=== PATIENT | male | born 1950 | race Caucasian/White ===

== ENCOUNTER 2023-08-22 10:32 | Outpatient (AMB) | payer MEDICARE, SELFPAY ==
--- NOTE | 2023-08-22 10:39 | MHC.PC.OV ---
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 Transferring care from Dr. Adeel Salazar MD. Medical records have been requested and received. Colonoscopy-12/05/22-Dr. Verduzco-two 6mm proximal rectum and cecal_, four 3mm transverse colon and cecal_, repeat 3-5 years. 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 Required: No Accompanied by: Self / Same As Patient Allergies No Known Allergies Allergy (Verified 08/22/23 11:08) Medication List - Last Reconciled 08/22/23 by Joseph Kyle PA-C apixaban (Eliquis) 5 mg PO BID aspirin 81 mg PO DAILY atorvastatin 80 mg PO DAILY cetirizine (Aller-Blanquita) 10 mg PO DAILY PRN cholecalciferol (vitamin D3) 25 mcg PO DAILY famotidine (Pepcid AC) 10 mg PO DAILY ferrous fumarate 324 mg PO DAILY finasteride 5 mg PO DAILY furosemide 20 mg PO DAILY metoprolol succinate ER 25 mg PO DAILY [id number] mcg (Centrum Silver Men) 1 tab PO DAILY tadalafil 5 mg PO DAILY Tobacco use date assessed: 08/22/23 Fall risk assessment: No Falls in past year Last assessed Fall Risk: 08/22/23 Dental Screening Dental Screen Date: 08/22/23 Did you have a dental visit in the last 12 months?: Yes Did you have a dental problem in the last 6 months where you did not have access to dental care?: No Was dental information given to patient?: Patient has dentist HPI 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 Patient has a significant past medical history of coronary artery disease, paroxysmal AFib, paroxysmal a flutter status post cardiac ablation, mitral valve replacement, hypertension, type 2 diabetes, hyperlipidemia. .. Coronary artery disease: Has had coronary artery bypass . Patient followed by home performance laborer ( Dr. Yazidi) , continues on beta-troy, anti-platelet therapy and high potency statin . .. AFib/a flutter: Has had a cardiac ablation which seems to have helped. Continues on Eliquis for anticoagulation, denies any overt signs of bleeding. Also sees Dr. Kurtz (brim blocker). .. Type 2 diabetes: Today's A1c is 6.8. He is not on any diabetic medication as he has been able to control with diet. He does go to the gym several times a week and is very active. Colonoscopy: Done by Dr. 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 1. Little interest or pleasure in doing things: not at all 2. Feeling down, depressed, or hopeless: not at all 3. Trouble falling or staying asleep, or sleeping too much: not at all 4. Feeling tired or having little energy: not at all 5. Poor appetite or overeating: not at all 6. Feeling bad about yourself - or that you are a failure or have let yourself or your family down: not at all 7. Trouble concentrating on things, such as reading the newspaper or watching television: not at all 8. Moving or speaking so slowly that other people could have noticed. Or the opposite - being so fidgety or restless that you have been moving around a lot more than usual: not at all 9. Thoughts that you would be better off or of hurting yourself in some way: not at all Total score: 0 Depression Screening Interpretation: Negative Depression Screening Done: Yes 27260 - PHQ-9 Billing: Yes Source: Developed by Drs. Evan Wood, Lulú Martínez, Missael Balderrama and colleagues, with an educational randy from [employer]. Thrive Questionnaire Date Thrive assessed: 08/22/23 I am a: Patient What is your living situation today?: I have a steady place to live Within the past 12 months, did the food you bought not last and you didn't have the money to get more?: Never true Within the past 12 months, did you worry whether your food would run out before you got money to buy more?: Never true Do you have trouble paying for medicines?: No Do you have trouble getting transportation to medical appointments?: No Do you have trouble paying your heating and electricity bill?: No Do you have trouble taking care of your child, family member or friend?: No Do you have trouble with day-to-day activities such as bathing, preparing meals, shopping, managing finances, etc.?: No Are you currently unemployed and looking for a job?: No Are you interested in more education?: No Please select the resources that you would like help with: None Currently or been in a relationship where the following occur: no concerns reported THRIVE Score: 0 AUDIT C Alcohol Use Questionnaire (AUDIT-C) 1. How often do you have a drink containing alcohol?: Never 3. How often do you have six or more drinks on one occasion?: Never Total Score: 0 MAKSIM-7 AMB Questionnaire MAKSIM-7 Date MAKSIM - 7 assessed: 08/22/23 Feeling nervous, anxious, or on edge: 0 = Not at all Not being able to stop or control worryin = Not at all Worrying too much about different things: 0 = Not at all Trouble relaxin = Not at all Being so restless that it is hard to sit still: 0 = Not at all Becoming easily annoyed or irritable: 0 = Not at all Feeling afraid as if something awful might happen: 0 = Not at all Total MAKSIM-7 score (0-4 normal; 5-9 mild; 10-14 moderate; 15-21 severe): 0 Source: Developed by Drs. Evan Wood, Lulú Martínez, Missael Balderrama and colleagues, with an educational randy from [employer]. MAKSIM-7 Assessment Billing MAKSIM-7 Assessment Tool: MAKSIM-7 Assessment 02855 Review of Systems Const Denies headache(s) Eyes Denies loss of vision ENT Denies vertigo, Denies dizziness, Denies headache(s) and Denies sore throat Card Denies chest pain, Denies leg edema and Denies lightheadedness Resp Denies cough, Denies hemoptysis and Denies wheezing GI Denies abdominal pain, Denies melena, Denies constipation, Denies diarrhea and Denies vomiting Denies dysuria, Denies urinary frequency and Denies urinary urgency Musc Denies arthralgias, Denies joint swelling, Denies numbness and Denies tingling Neuro Denies Abnormal speech present, Denies behavioral changes, Denies vertigo, Denies dizziness, Denies headache(s), Denies loss of vision, Denies memory loss, Denies numbness and Denies tingling Psych Denies anxiety, Denies behavioral changes, Denies depression, Denies memory loss and Denies panic attacks Kg/Lymph Denies easy bleeding and Denies easy bruising Aller/Immun Denies wheezing Physical exam (Primary Care) Vital Signs: Last Vital Signs Pulse 55 08/22/23 10:50 BP 140/80 H 08/22/23 10:50 Pulse Ox 98 08/22/23 10:50 Oxygen Delivery Method Room Air 08/22/23 10:50 BMI result Body Mass Index 25.7 Tobacco/Smoking Status: Tobacco use Status Tobacco use date assessed 08/22/23 08/22/23 11:01 Patient Tobacco Use Status Former Tobacco user 08/22/23 11:18 e-Cigarette/Vaping Use Never Used 08/22/23 11:18 PHQ-9: PHQ-9 Score PHQ-9: Total score 0 08/22/23 11:48 Depression Screening Interpretation: Negative Thrive Assessment: Date of Thrive Assessment Date Thrive assessed 08/22/23 08/22/23 11:14 Currently or been in a relationship where the following occur: no concerns reported Const General: healthy appearing, no acute distress, alert and awake Nutritional Appearance: well nourished Orientation/consciousness: oriented to person, oriented to place and oriented to time HENMT Ears: TM's normal bilaterally General nose exam: Normal nasal mucous membranes and turbinates present Eyes Conjunctivae: conjunctivae normal Sclerae: sclerae normal Pupils: Equal, round and reactive pupils present Neck Neck: Yes no lymphadenopathy and Yes no JVD Thyroid: Thyroid normal Carotids: no bruits Resp Effort & Inspection: normal respiratory effort and not tachypneic Auscultation: no crackles, no rales, no rhonchi and no wheezes Cardio Rate: regular rate Rhythm: regular rhythm Heart sounds: no murmurs and normal S1 and S2 GI Palpation (GI): Soft to palpation, nontender, no hepatomegaly and no splenomegaly Auscultation: normal bowel sounds Skin General skin exam: no rashes or lesions noted and dry skin Neuro General: oriented to person, oriented to place and oriented to time Cranial nerves: Yes Equal, round and reactive pupils present Speech: No Abnormal speech present Gait exam (Neuro): Normal gait present Motor exam (neuro): no tremor noted Extrem Right upper extremity: full ROM Left upper extremity: full ROM Right lower extremity: full ROM; no edema Left lower extremity: full ROM; no edema Psych Mental Status: mental status grossly normal Speech and movement: Normal speech and movement present Affect: normal affect Attitude: cooperative Thought process: Normal thought process present Results AMB Hemoglobin A1c AMB Hemoglobin A1c 6.8 % Last Edit by CHRISTOPHE Cheng on 08/22/23 11:12 Results Reviewed Results Reviewed: Laboratory Last Values Hgb A1c (Clinic) 6.8 % (4.0-6.0) H 08/22/23 11:02 Assessment and Plan Assessment & Plan (1) CAD (coronary artery disease), [place] coronary artery: Code(s): I25.10 - Atherosclerotic heart disease of [place] coronary artery without angina pectoris Qualifiers: Associated angina: with stable angina [place] vs. transplanted heart: [place] heart Qualified Code(s): I25.118 - Atherosclerotic heart disease of [place] coronary artery with other forms of angina pectoris Plan: Patient is followed by home performance laborer at [facility]. Continues on beta-troy, aspirin, anticoagulation and statin therapy. Goal LDL to remain below optimally 70 (2) Diabetes mellitus screening: Code(s): Z13.1 - Encounter for screening for diabetes mellitus (3) S/P MVR (mitral valve repair): Code(s): Z98.890 - Other specified postprocedural states Plan: Continues without any symptoms of overt congestive heart failure. Does have furosemide in case of lower extremity swelling. Continues follow-up with cardiology at [facility] (4) Afib: Code(s): I48.91 - Unspecified atrial fibrillation Qualifiers: Atrial fibrillation type: paroxysmal Qualified Code(s): I48.0 - Paroxysmal atrial fibrillation Plan: Patient is followed by brim blocker. Continues on metoprolol for rate control and Eliquis for anticoagulation. He denies any recent episodes of heart palpitations (5) BPH (benign prostatic hyperplasia): Code(s): N40.0 - Benign prostatic hyperplasia without lower urinary tract symptoms Qualifiers: Lower urinary tract symptom presence: symptoms absent Qualified Code(s): N40.0 - Benign prostatic hyperplasia without lower urinary tract symptoms Plan: Patient is followed by [facility] (Dr. Zamora). He reports PSAs have been stable. (6) Erectile dysfunction: Code(s): N52.9 - Male erectile dysfunction, unspecified Qualifiers: Erectile dysfunction type: unspecified Qualified Code(s): N52.9 - Male erectile dysfunction, unspecified Plan: Has been having trouble with erectile dysfunction. Does have both Cialis and Viagra to use in change really from his urologist. He is asking me about other supplements [id number] to help with erectile dysfunction and will give them a try. (7) Iron deficiency: Code(s): E61.1 - Iron deficiency Plan: Has a history of iron-deficiency anemia. Does take iron supplementation a few times a week. Does get constipation when he takes iron supplementation. (8) DMII (diabetes mellitus, type 2): Code(s): E11.9 - Type 2 diabetes mellitus without complications Qualifiers: Diabetes mellitus complication status: without complication Diabetes mellitus long term care administrator insulin use: without long term care administrator use Qualified Code(s): E11.9 - Type 2 diabetes mellitus without complications Plan: Patient's A1c today is 6.8. He will like to continue with lifestyle changes. He is interested in perhaps reducing his statin dose as there is a possible side effect of type 2 diabetes. Orders: Orders Comprehensive [place]. Panel Fast Today E11.9 - Type 2 diabetes mellitus without complications Complete Blood Count no Diff Today E61.1 - Iron deficiency Lipid Panel Today I25.118 - Atherosclerotic heart disease of [place] coronary artery with other forms of angina pectoris AMB Hemoglobin A1c Today Z13.1 - Encounter for screening for diabetes mellitus IRON PROFILE Today D50.9 - Iron deficiency anemia, unspecified, E61.1 - Iron deficiency Medications: New furosemide 20 mg PO DAILY 15 days PRN 15 tabs 1RF edema Z98.890 - Other specified postprocedural states Coding Level of Care Code New Pt Level 4 (17775) Diagnoses Coronary artery disease of [place] artery of [place] heart with stable angina pectoris I25.118 Associated angina: with stable angina [place] vs. transplanted heart: [place] heart Diabetes mellitus screening Z13.1 S/P MVR (mitral valve repair) Z98.890 Paroxysmal atrial fibrillation I48.0 Atrial fibrillation type: paroxysmal Benign prostatic hyperplasia without lower urinary tract symptoms N40.0 Lower urinary tract symptom presence: symptoms absent Erectile dysfunction, unspecified erectile dysfunction type N52.9 Erectile dysfunction type: unspecified Iron deficiency E61.1 Type 2 diabetes mellitus without complication, without long-term current use of insulin E11.9 Diabetes mellitus complication status: without complication Diabetes mellitus long term care administrator insulin use: without chcf use Additional Codes MAKSIM-7 Assessment Billing - MAKSIM-7 Assessment Tool: MAKSIM-7 Assessment 24659 ([id number])
[2023-08-22 10:50] VITALS: BP 140/80; PULSE 55; O2SAT 98; BMI 25.7
== END 2023-08-22 11:40 | disposition home or self-care (01) ==
PROVIDERS: PCP Internal Medicine; Visit Provider Physician Assistant
DX: I25.118 Atherosclerotic heart disease of native coronary artery with other forms of angina pectoris (principal); I48.0 Paroxysmal atrial fibrillation; E11.9 Type 2 diabetes mellitus without complications; Z13.1 Encounter for screening for diabetes mellitus; Z98.890 Other specified postprocedural states; N40.0 Benign prostatic hyperplasia without lower urinary tract symptoms; N52.9 Male erectile dysfunction, unspecified; E61.1 Iron deficiency
CPT/HCPCS: 83036; 99204

== ENCOUNTER 2024-02-22 08:49 | Outpatient (AMB) | payer MEDICARE, SELFPAY ==
[2024-02-22 08:51] VITALS: BP 130/74; PULSE 62; O2SAT 98; BMI 24.8
--- NOTE | 2024-02-22 08:51 | A.OFFPC_ITS ---
Vital Signs 3 02/22/24 08:51 Height 6 ft 2 in Weight 193 lb 0.8 oz BMI 24.8 BP 130/74 Blood Pressure Location Lt brachial Position Sitting Pulse 62 Pulse Source Pulse Oximeter Pulse Oximetry (%) 98 Oxygen Delivery Method Room Air Intake Visit Reasons: pe Intake Note: Patient is here today for a physical. Machine Splitter Required: No Allergies No Known Allergies Allergy (Verified 02/22/24 09:06) Medication List - Last Reconciled 02/22/24 by Radha Escobar PA-C albuterol sulfate 90 mcg/actuation 1 inh inhalation QID PRN 30 days apixaban (Eliquis) 5 mg PO BID aspirin 81 mg PO DAILY atorvastatin 80 mg PO DAILY cetirizine (Aller-Blanquita) 10 mg PO DAILY PRN cholecalciferol (vitamin D3) 25 mcg PO DAILY famotidine (Pepcid AC) 10 mg PO DAILY ferrous fumarate 324 mg PO DAILY finasteride 5 mg PO DAILY metoprolol succinate ER 25 mg PO DAILY [id number] mcg (Centrum Silver Men) 1 tab PO DAILY tadalafil 5 mg PO DAILY Tobacco use date assessed: 08/22/23 Fall risk assessment: No Falls in past year Last assessed Fall Risk: 02/22/24 Dental Screening Dental Screen Date: 02/22/24 Did you have a dental visit in the last 12 months?: Yes Did you have a dental problem in the last 6 months where you did not have access to dental care?: No Was dental information given to patient?: Patient has dentist HPI pe 2 HPI0 Details Patient is a 73-year-old male here today as a new patient.? Patient has a significant past medical history of coronary artery disease, paroxysmal AFib, paroxysmal a flutter status post cardiac ablation, mitral valve replacement, hypertension, type 2 diabetes, hyperlipidemia.? In review of the notes, patient was seen for diabetic eye exam 11/2023 no sign of retinopathy. Colonoscopy:? Done by Dr. verduzco in 2022, polyps found needed repeat in 3-5 years. Follows with cardiology through [facility] and is seen yearly for AFib and MV replacement. Follows with [facility] with Dr. Lin. Today the patient has no acute concerns. 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 1. Little interest or pleasure in doing things: not at all 2. Feeling down, depressed, or hopeless: not at all 3. Trouble falling or staying asleep, or sleeping too much: not at all 4. Feeling tired or having little energy: not at all 5. Poor appetite or overeating: not at all 6. Feeling bad about yourself - or that you are a failure or have let yourself or your family down: not at all 7. Trouble concentrating on things, such as reading the newspaper or watching television: not at all 8. Moving or speaking so slowly that other people could have noticed. Or the opposite - being so fidgety or restless that you have been moving around a lot more than usual: not at all 9. Thoughts that you would be better off or of hurting yourself in some way: not at all Total score: 0 Depression Screening Interpretation: Negative Depression Screening Done: Yes 52243 - PHQ-9 Billing: Yes Source: Developed by Drs. Evan Wood, Lulú Martínez, Missael Balderrama and colleagues, with an educational randy from [employer]. Thrive Questionnaire Date Thrive assessed: 08/22/23 I am a: Patient What is your living situation today?: I have a steady place to live Within the past 12 months, did the food you bought not last and you didn't have the money to get more?: Never true Within the past 12 months, did you worry whether your food would run out before you got money to buy more?: Never true Do you have trouble paying for medicines?: No Do you have trouble getting transportation to medical appointments?: No Do you have trouble paying your heating and electricity bill?: No Do you have trouble taking care of your child, family member or friend?: No Do you have trouble with day-to-day activities such as bathing, preparing meals, shopping, managing finances, etc.?: No Are you currently unemployed and looking for a job?: No Are you interested in more education?: No Please select the resources that you would like help with: None Currently or been in a relationship where the following occur: No concerns reported THRIVE Score: 0 AUDIT C Alcohol Use Questionnaire (AUDIT-C) 1. How often do you have a drink containing alcohol?: Never 3. How often do you have six or more drinks on one occasion?: Never Total Score: 0 MAKSIM-7 AMB Questionnaire MAKSIM-7 Date MAKSIM - 7 assessed: 02/22/24 Feeling nervous, anxious, or on edge: 0 = Not at all Not being able to stop or control worryin = Not at all Worrying too much about different things: 0 = Not at all Trouble relaxin = Not at all Being so restless that it is hard to sit still: 0 = Not at all Becoming easily annoyed or irritable: 0 = Not at all Feeling afraid as if something awful might happen: 0 = Not at all Total MAKSIM-7 score (0-4 normal; 5-9 mild; 10-14 moderate; 15-21 severe): 0 Source: Developed by Drs. Evan Wood, Lulú Martínez, Missael Balderrama and colleagues, with an educational randy from [employer]. MAKSIM-7 Assessment Billing MAKSIM-7 Assessment Tool: MAKSIM-7 Assessment 76830 Review of Systems Const Denies body aches, Denies fatigue, Denies fever(s), Denies frequent falls, Reports headache(s) (Occasionally) and Denies weakness Eyes Details: Patient will occasionally have 15 minute episodes seeing lights in the peripheral vision has discussed this with Ophthalmology. Denies change in vision ENT Denies dysphagia, Denies dizziness, Denies facial pain, Reports headache(s) (Occasionally), Denies nasal congestion and Denies odynophagia Card Denies chest pain, Denies syncope, Denies irregular heart rhythm, Denies leg edema, Denies lightheadedness and Denies dyspnea Resp Denies cough and Denies dyspnea GI Denies constipation, Denies dysphagia, Denies dyspepsia, Denies diarrhea, Denies nausea, Denies odynophagia and Denies vomiting Denies dysuria, Denies urinary frequency, Denies urinary hesitancy and Denies urinary urgency Musc Denies back pain and Denies myalgias Skin/Breast Reports system reviewed and no additional complaints, except as documented Neuro Denies dizziness, Denies syncope, Denies frequent falls, Reports headache(s) (Occasionally) and Denies weakness Psych Reports no additional complaints Endo Denies fatigue Physical exam (Primary Care) Vital Signs: Oxygen Delivery Method Room Air 02/22/24 08:51 Tobacco/Smoking Status: Tobacco use Status Tobacco use date assessed 08/22/23 08/22/23 11:01 Patient Tobacco Use Status Former Tobacco user 08/22/23 11:18 e-Cigarette/Vaping Use Never Used 08/22/23 11:18 Depression Screening Interpretation: Negative Thrive Assessment: Date of Thrive Assessment Date Thrive assessed 08/22/23 08/22/23 11:14 Currently or been in a relationship where the following occur: No concerns reported Const General: cooperative, healthy appearing, comfortable and no acute distress Orientation/consciousness: patient oriented x3 HENMT Head: Yes normocephalic Ears: hearing grossly normal bilaterally, external ears normal, TM's normal bilaterally and EAC's normal General nose exam: Normal external nose present Face and sinus: Yes normal facial exam and Yes sinuses nontender Mouth: Normal oral and palatal mucosa present and tongue normal Throat: Yes posterior oropharynx normal Eyes General: appearance normal, both eyes and all related structures Conjunctivae: conjunctivae normal Pupils: Equal, round and reactive pupils present EOM: EOMs intact bilaterally and No Nystagmus present Neck Neck: Yes normal visual inspection, Yes full ROM and Yes no lymphadenopathy Chest Chest palpation & inspection: normal inspection of the chest Resp Effort & Inspection: normal respiratory effort Auscultation: clear to auscultation bilaterally, no crackles, no rales, no rhonchi, no wheezes and breath sounds present Cardio Rate: regular rate Rhythm: regular rhythm Peripheral pulses: radial pulses present and dorsalis pedis present GI Inspection: Yes normal to inspection and No Abdominal wall edema Palpation (GI): Soft to palpation, not firm and nontender Auscultation: normal bowel sounds Rectal Exam - Male: Yes deferred General: Yes no CVA tenderness Back/Spine/Pelvis Back: no CVA tenderness Skin Other: Small dark brown nevus on the chest without discoloration, crusting, or bleeding and with regular borders. Full body images: 2 1. mole Neuro General: patient oriented x3 Cranial nerves: Yes Equal, round and reactive pupils present, Yes Midline tongue present, Yes Ability to bilaterally elevate shoulders present and No Nystagmus present Gait exam (Neuro): Normal gait present Extrem General: Yes normal to inspection, Yes full ROM, No no pedal edema and No edema Psych Speech and movement: Normal speech and movement present Affect: normal affect Insight: Good insight present (Psych) Judgement: Good judgement present (Psych) Results AMB Hemoglobin A1c 2 AMB Hemoglobin A1c 6.5 % Last Edit by MARIBELL Nunez on 02/22/24 09:06 Assessment and Plan Assessment & Plan (1) DMII (diabetes mellitus, type 2): Code(s): E11.9 - Type 2 diabetes mellitus without complications Qualifiers: Diabetes mellitus complication status: without complication Diabetes mellitus fci insulin use: without rodent exterminator use Qualified Code(s): E11.9 - Type 2 diabetes mellitus without complications Plan: Diabetes is well controlled with lifestyle modification and is not currently on any medication. A1c in the office was 6.5% today down from 6.9% at last visit. We will order for repeat A1c in 6 months. Decrease the amount of carbohydrates such as pasta, bread, rice, and potatoes and limit the amount of sweets. Although fruits are generally healthy they should be eaten in moderation as they are still high in sugar. Hemoglobin A1c goal of less than 7%. Continue on current medication. (2) BPH (benign prostatic hyperplasia): Code(s): N40.0 - Benign prostatic hyperplasia without lower urinary tract symptoms Qualifiers: Lower urinary tract symptom presence: symptoms absent Qualified Code(s): N40.0 - Benign prostatic hyperplasia without lower urinary tract symptoms Plan: Followed by [facility]. On finasteride. (3) Afib: Code(s): I48.91 - Unspecified atrial fibrillation Qualifiers: Atrial fibrillation type: paroxysmal Qualified Code(s): I48.0 - Paroxysmal atrial fibrillation Plan: Follows with [facility]iology s/p mitral valve replacement and atrial fibrillation. Continue on apixaban and metoprolol. (4) CAD (coronary artery disease), [place] coronary artery: Code(s): I25.10 - Atherosclerotic heart disease of [place] coronary artery without angina pectoris Qualifiers: Associated angina: with stable angina [place] vs. transplanted heart: n ative heart Qualified Code(s): I25.118 - Atherosclerotic heart disease of [place] coronary artery with other forms of angina pectoris Plan: Encouraged healthy diet and exercise. (5) Annual physical exam: Code(s): Z00.00 - Encounter for general adult medical examination without abnormal findings Plan: Patient is up-to-date on colonoscopy. Discussed aortic aneurysm screening patient is unsure if he has already had this done and we will reach out to have it scheduled if appropriate. Patient is up-to-date on all other screenings and recommendations for his age. Follow up in 1 year or sooner if new problems arise. (6) Hypercholesterolemia: Code(s): E78.00 - Pure hypercholesterolemia, unspecified Plan: Last cholesterol levels were at goal continue on atorvastatin 80 mg. Avoid foods that are high in cholesterol such as red meat, fried foods, eggs and baked goods. Triglyceride goal of less than 150 and LDL goal of less than 100. Plan This note was constructed using voice recognition software. While every effort has been made to ensure accuracy and project development director, still areas may have been included sometimes these areas may affect the content or meeting of the given symptoms. Total time spent caring for the patient today was 35 minutes. This includes time spent before the visit reviewing the chart, time spent during the visit, and time spent after the visit and documentation. Orders: Orders 2 AMB Hemoglobin A1c Today E11.9 - Type 2 diabetes mellitus without complications Comprehensive Met. Panel Today Z00.00 - Encounter for general adult medical examination without abnormal findings Prostate Specific Antigen Scr Today Z00.00 - Encounter for general adult medical examination without abnormal findings Free T4 (Free Thyroxine) Today Z00.00 - Encounter for general adult medical examination without abnormal findings TSH reflex Free T4 Today Z00.00 - Encounter for general adult medical examination without abnormal findings Vitamin D 25-OH (D2 and D3) Today Z00.00 - Encounter for general adult medical examination without abnormal findings Hemoglobin A1c 6 Months E11.9 - Type 2 diabetes mellitus without complications Vitamin B12 and Folate Today Z00.00 - Encounter for general adult medical examination without abnormal findings Coding Level of Care Code New Pt Prev Care >65yr (18061) Diagnoses Type 2 diabetes mellitus without complication, without long-term current use of insulin E11.9 Diabetes mellitus complication status: without complication Diabetes mellitus rodent exterminator insulin use: without fci use Benign prostatic hyperplasia without lower urinary tract symptoms N40.0 Lower urinary tract symptom presence: symptoms absent Paroxysmal atrial fibrillation I48.0 Atrial fibrillation type: paroxysmal Coronary artery disease of [place] artery of [place] heart with stable angina pectoris I25.118 Associated angina: with stable angina [place] vs. transplanted heart: [place] heart Annual physical exam Z00.00 Hypercholesterolemia E78.00 Additional Codes MAKSIM-7 Assessment Billing - MAKSIM-7 Assessment Tool: MAKSIM-7 Assessment 43668 ([id number])
== END 2024-02-22 09:32 | disposition home or self-care (01) ==
PROVIDERS: PCP Physician Assistant
DX: E11.9 Type 2 diabetes mellitus without complications (principal)
CPT/HCPCS: 83036; 99397

== ENCOUNTER 2024-02-22 09:41 | Outpatient (REF) | payer MEDICARE, SELFPAY ==
[2024-02-22 11:07] LABS: Alanine Aminotransferase 27 U/L (0-40); Albumin Level 4.5 g/dL (3.5-5.0); Alkaline Phosphatase 110 U/L (39-117); Anion Gap 11 (12-20); Aspartate Amino Transferase 44 U/L (5-37); Bilirubin Total 1.2 mg/dL (0.0-1.0); Blood Urea Nitrogen 17 mg/dL (9-16); Calcium 10.1 mg/dL (8.4-10.2); Carbon Dioxide 29 mmol/L (22-29); Chloride 105 mmol/L (96-108); Estimated Glomerular Filt Rate > 60; Glucose Random 115 mg/dL (60-115); Potassium 4.1 mmol/L (3.3-5.1); Sodium 141 mmol/L (135-145); Total Protein 7.5 g/dL (6.5-8.0)
[2024-02-22 11:33] LABS: Free T4 (Free Thyroxine) 0.96 ng/dL (0.71-1.85); TSH reflex Free T4 2.72 uIU/mL (0.32-4.0)
[2024-02-22 11:34] LABS: Folate 13.7 ng/mL (> or = 4.0); Prostate Specific Antigen Scr 1.31 ng/mL (<0.05-4.0); Vitamin B12 599 pg/mL (200-900)
[2024-02-27 13:43] LABS: Vitamin D 25-OH, D2 <4 ng/mL; Vitamin D 25-OH, D3 37 ng/mL; Vitamin D 25-OH, Total 37 ng/mL (30-100)
== END 2024-02-22 09:42 | disposition home or self-care (01) ==
LOC: HO.LAB 09:41
PROVIDERS: PCP Physician Assistant
DX: Z00.00 Encounter for general adult medical examination without abnormal findings (principal); Z12.5 Encounter for screening for malignant neoplasm of prostate
CPT/HCPCS: 36415; 80053; 82306; 82607; 82746; 84153; 84439; 84443

== ENCOUNTER 2025-03-04 09:33 | Outpatient (AMB) | payer MEDICARE, SELFPAY ==
--- NOTE | 2025-03-04 09:49 | A.OFFPC_ITS ---
Vital Signs 03/04/25 09:50 Height 6 ft 2 in Weight 195 lb 4 oz BMI 25.1 BP 110/70 Blood Pressure Location Lt brachial Position Sitting Pulse 62 Pulse Source Pulse Oximeter Temp 96.9 F Temp Source Temporal Artery Scan Pulse Oximetry (%) 100 Oxygen Delivery Method Room Air Intake Visit Reasons: PE R/S from 02/24 - see comments Intake Note: Patient is here today for a physical. 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 Required: No Trapeze Performer: Not Required per policy Accompanied by: Self / Same As Patient Allergies No Known Allergies Allergy (Verified 03/04/25 10:14) Medication List - Last Reconciled 03/04/25 by Joseph Kyle PA-C albuterol sulfate 90 mcg/actuation 1 inh inhalation QID PRN 30 days apixaban (Eliquis) 5 mg PO BID aspirin 81 mg PO DAILY atorvastatin 80 mg PO DAILY cetirizine (Aller-Blanquita) 10 mg PO DAILY PRN cholecalciferol (vitamin D3) 25 mcg PO DAILY famotidine (Pepcid AC) 10 mg PO DAILY ferrous fumarate 324 mg PO DAILY finasteride 5 mg PO DAILY metoprolol succinate ER 25 mg PO DAILY [id number] mcg (Centrum Silver Men) 1 tab PO DAILY tadalafil 5 mg PO DAILY Tobacco use date assessed: 03/04/25 Fall risk assessment: No Falls in past year Last assessed Fall Risk: 03/04/25 Dental Screening Dental Screen Date: 03/04/25 Did you have a dental visit in the last 12 months?: Yes Did you have a dental problem in the last 6 months where you did not have access to dental care?: No Was dental information given to patient?: Patient has dentist HPI PE R/S from 02/24 - see comments HPI Details Patient is a 74-year-old male here today for an annual physical Patient has a significant past medical history of coronary artery disease, paroxysmal AFib, paroxysmal a flutter status post cardiac ablation, mitral valve replacement, hypertension, type 2 diabetes, hyperlipidemia. Concerns--> The patient experiences erectile dysfunction, which he attributes to medications such as metoprolol and finasteride. He is currently using tadalafil, which improves urinary flow but not erectile function for any meaningful period of time. .. Coronary artery disease: Has had coronary artery bypass . Patient followed by lathe set up operator ( Dr. Santos) , continues on beta-troy, anti-platelet therapy and high potency statin . .. AFib/a flutter: Has had a cardiac ablation which seems to have helped. Continues on Eliquis for anticoagulation, denies any overt signs of bleeding. 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 .. Type 2 diabetes: Today's A1c is much improved at 5.6. He is not on any diabetic medication as he has been able to control with diet. He does go to the gym several times a week and is very active. .. Vaccine: Up-to-date with all vaccines, considering RSV vaccine Colonoscopy: Done by Dr. verduzco in 2022, polyps found needed repeat in 3-5 years Laboratory Tests 02/22/24 03/04/25 08:44 09:49 Hgb A1c (Clinic) 6.5 H 5.6 PFSH Medical History Polymyalgia rheumatica Allergic rhinitis Pure hypercholesterolemia Essential hypertension Surgical History Hx of inguinal hernia surgery History of mitral valve replacement Family History Mother Colon cancer, Onset Age: 80 Father DMII (diabetes mellitus, type 2) Brother DMII (diabetes mellitus, type 2) Social History Housing: House Alcohol intake: never Patient Tobacco Use Status: Former Tobacco user e-Cigarette/Vaping Use: Never Used Second Hand Smoke Exposure: Yes service: No 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 1. Little interest or pleasure in doing things: not at all 2. Feeling down, depressed, or hopeless: not at all 3. Trouble falling or staying asleep, or sleeping too much: not at all 4. Feeling tired or having little energy: not at all 5. Poor appetite or overeating: not at all 6. Feeling bad about yourself - or that you are a failure or have let yourself or your family down: not at all 7. Trouble concentrating on things, such as reading the newspaper or watching television: not at all 8. Moving or speaking so slowly that other people could have noticed. Or the opposite - being so fidgety or restless that you have been moving around a lot more than usual: not at all 9. Thoughts that you would be better off or of hurting yourself in some way: not at all Total score: 0 Depression Screening Interpretation: Negative Depression Screening Done: Yes 48172 - PHQ-9 Billing: Yes Source: Developed by Drs. Evan Wood, Lulú Martínez, Missael Balderrama and colleagues, with an educational randy from [employer]. Thrive Questionnaire Date Thrive assessed: 02/25/25 I am a: Patient What is your living situation today?: I have a steady place to live Within the past 12 months, did the food you bought not last and you didn't have the money to get more?: Never true Within the past 12 months, did you worry whether your food would run out before you got money to buy more?: Never true Do you have trouble paying for medicines?: No Do you have trouble getting transportation to medical appointments?: No Do you have trouble paying your heating and electricity bill?: No Do you have trouble taking care of your child, family member or friend?: No Do you have trouble with day-to-day activities such as bathing, preparing meals, shopping, managing finances, etc.?: No Are you currently unemployed and looking for a job?: No Are you interested in more education?: No Please select the resources that you would like help with: None Currently or been in a relationship where the following occur: No concerns reported THRIVE Score: 0 AUDIT C Alcohol Use Questionnaire (AUDIT-C) 1. How often do you have a drink containing alcohol?: Never 2. How many drinks containing alcohol do you have on a typical day when you are drinking?: 1 or 2 3. How often do you have six or more drinks on one occasion?: Never Total Score: 0 MAKSIM-7 AMB Questionnaire MAKSIM-7 Date MAKSIM - 7 assessed: 03/04/25 Feeling nervous, anxious, or on edge: 0 = Not at all Not being able to stop or control worryin = Not at all Worrying too much about different things: 0 = Not at all Trouble relaxin = Not at all Being so restless that it is hard to sit still: 0 = Not at all Becoming easily annoyed or irritable: 0 = Not at all Feeling afraid as if something awful might happen: 0 = Not at all Total MAKSIM-7 score (0-4 normal; 5-9 mild; 10-14 moderate; 15-21 severe): 0 Source: Developed by Drs. Evan oWod, Lulú Martínez, Missael Balderrama and colleagues, with an educational randy from [employer]. MAKSIM-7 Assessment Billing MAKSIM-7 Assessment Tool: MAKSIM-7 Assessment 96135 Review of Systems Const Denies body aches, Denies chills, Denies excessive sweating, Denies fatigue, Denies fever(s) and Denies headache(s) Eyes Denies blurry vision ENT Denies dysphagia, Denies vertigo, Denies dizziness, Denies headache(s), Denies hearing loss and Denies tinnitus Card Denies chest pain, Denies chest pain with activity, Denies syncope, Denies irregular heart rhythm and Denies dyspnea Resp Denies chest congestion, Denies cough, Denies hemoptysis, Denies dyspnea and Denies wheezing GI Denies abdominal pain, Denies melena, Denies hematochezia, Denies coffee ground emesis, Denies dysphagia, Denies diarrhea, Denies nausea and Denies vomiting Denies difficulty urinating, Denies dysuria, Denies urinary frequency, Denies urinary hesitancy and Denies urinary urgency Musc Denies arthralgias, Denies limited range of motion, Denies muscle cramps and Denies muscle weakness Skin/Breast Denies rash and Denies skin ulcer Neuro Denies Abnormal speech present, Denies confusion, Denies vertigo, Denies dizziness, Denies syncope, Denies headache(s), Denies memory loss and Denies seizure-like activity Psych Denies anxiety, Denies confusion, Denies depression, Denies memory loss, Denies panic attacks and Denies paranoia Endo Denies excessive sweating, Denies fatigue, Denies flushing, Denies polydipsia and Denies polyuria Aller/Immun Denies wheezing Physical exam (Primary Care) Vital Signs: Last Vital Signs Temp 96.9 F 03/04/25 09:50 Pulse 62 03/04/25 09:50 BP 110/70 03/04/25 09:50 Pulse Ox 100 03/04/25 09:50 Oxygen Delivery Method Room Air 03/04/25 09:50 BMI result Body Mass Index 25.1 Tobacco/Smoking Status: Tobacco use Status Tobacco use date assessed 03/04/25 03/04/25 10:00 Patient Tobacco Use Status Former Tobacco user 03/04/25 10:00 e-Cigarette/Vaping Use Never Used 03/04/25 10:00 PHQ-9: PHQ-9 Score PHQ-9: Total score 0 03/04/25 10:12 Depression Screening Interpretation: Negative Thrive Assessment: Date of Thrive Assessment Date Thrive assessed 02/25/25 03/04/25 10:00 Currently or been in a relationship where the following occur: No concerns reported Const General: cooperative, comfortable, no acute distress, alert and awake; No confusion Orientation/consciousness: oriented to person, oriented to place, patient or iented x3 and No confusion HENMT Head: Yes normocephalic Ears: external ears normal and TM's normal bilaterally Face and sinus: No sinus tenderness Mouth: Normal oral and palatal mucosa present and tongue normal Teeth and gingiva: dentition normal and gingiva normal Throat: Yes posterior oropharynx normal, Yes tonsils normal and Yes uvula midline Eyes Conjunctivae: conjunctivae normal Sclerae: sclerae normal Pupils: Equal, round and reactive pupils present EOM: EOMs intact bilaterally Direct Ophthalmoscopy: No no photophobia Neck Neck: Yes no lymphadenopathy, No tender and Yes no JVD Thyroid: Thyroid normal Carotids: no bruits Chest Chest palpation & inspection: no tenderness Resp Effort & Inspection: normal respiratory effort, no audible wheezes, not labored and no stridor Auscultation: no crackles, no rales, no rhonchi and no wheezes Cardio Jugular venous distension: no JVD Rate: regular rate, not bradycardic and not tachycardic Rhythm: regular rhythm Bruits: no carotid bruits Peripheral pulses: Peripheral pulses 2+ throughout GI Inspection: Yes normal to inspection, No abdominal wall ecchymosis and No visible herniation Palpation (GI): Soft to palpation, nontender, no guarding, not rigid and No hepatosplenomegaly present Auscultation: normoactive bowel sounds General: Yes no CVA tenderness Back/Spine/Pelvis Back: no CVA tenderness and No back tenderness Cervical Spine: cervical ROM normal Thoracic/Lumbar Spine: thoracic and lumbar spine normal to inspection, straight leg raise negative bilaterally, No thoraco-lumbar ROM limited and No lumbar spinal tenderness Skin Lesions: no lesions Rashes: no rashes Wounds: no wounds Neuro General: oriented to person, oriented to place, patient oriented x3, CN's II-XI intact bilaterally and No confusion Cranial nerves: Yes Equal, round and reactive pupils present and Yes Normal accommodation reflex present Cognition (Neuro): normal cognition Speech: No Abnormal speech present Gait exam (Neuro): Normal gait present Motor exam (neuro): 5/5 motor strength present throughout Extrem Right upper extremity: full ROM; no cyanosis Left upper extremity: full ROM; no cyanosis Right lower extremity: no edema Left lower extremity: no edema Psych Appearance: grossly normal Mental Status: mental status grossly normal Affect: normal affect Attitude: cooperative Thought process: Normal thought process present Results AMB Hemoglobin A1c AMB Hemoglobin A1c 5.6 % Last Edit by MARIBELL Pruitt on 03/04/25 10:05 Results Reviewed Results Reviewed: Laboratory Last Values Hgb A1c (Clinic) 5.6 % (4.0-6.0) 03/04/25 09:49 Coding Level of Care Code Est Pt Prev Care >65y(06070) Diagnoses Annual physical exam Z00.00 Coronary artery disease of [place] artery of [place] heart with stable angina pectoris I25.118 Associated angina: with stable angina [place] vs. transplanted heart: [place] heart S/P MVR (mitral valve repair) Z98.890 Hypercholesterolemia E78.00 Type 2 diabetes mellitus without complication, without long-term current use of insulin E11.9 Diabetes mellitus complication status: without complication Diabetes mellitus skilled nursing insulin use: without roasterman use Paroxysmal atrial fibrillation I48.0 Atrial fibrillation type: paroxysmal Erectile dysfunction, unspecified erectile dysfunction type N52.9 Erectile dysfunction type: unspecified Additional Codes PHQ-9 - 45764 - PHQ-9 Billing: Yes ([id number]) MAKSIM-7 Assessment Billing - MAKSIM-7 Assessment Tool: MAKSIM-7 Assessment 89784 ([id number]) Assessment & Plan Assessment & Plan (1) Annual physical exam: Code(s): Z00.00 - Encounter for general adult medical examination without abnormal findings Category: Medical Plan: As per HPI (2) CAD (coronary artery disease), [place] coronary artery: Code(s): I25.10 - Atherosclerotic heart disease of [place] coronary artery without angina pectoris Category: Medical Qualifiers: Associated angina: with stable angina [place] vs. transplanted heart: [place] heart Qualified Code(s): I25.118 - Atherosclerotic heart disease of [place] coronary artery with other forms of angina pectoris Plan: Patient continues to follow cardiology Dr. Santos. He continues on high potency statin and has been therapy. Will check his lipid panel to ensure optimal LDL below 70. of note Patient is interested in reducing his atorvastatin to 40 mg. (3) S/P MVR (mitral valve repair): Code(s): Z98.890 - Other specified postprocedural states Category: Surgical Plan: Patient continues to follow cardiology. (4) Hypercholesterolemia: Code(s): E78.00 - Pure hypercholesterolemia, unspecified Category: Medical Plan: As above goal optimal LDL to be below 70 (5) DMII (diabetes mellitus, type 2): Code(s): E11.9 - Type 2 diabetes mellitus without complications Category: Medical Qualifiers: Diabetes mellitus complication status: without complication Diabetes mellitus roasterman insulin use: without skilled nursing use Qualified Code(s): E11.9 - Type 2 diabetes mellitus without complications Plan: Patient's most recent A1c appropriate. He has been off of diabetic medication for quite some time and has been managing with diet and exercise. Goal LDL is to remain below 7.0 (6) Afib: Code(s): I48.91 - Unspecified atrial fibrillation Category: Medical Qualifiers: Atrial fibrillation type: paroxysmal Qualified Code(s): I48.0 - Paroxysmal atrial fibrillation Plan: Patient continues on Eliquis for anticoagulation without any overt signs of bleeding. He has not had any heart palpitations or rapid heart rates. He is under rate control with metoprolol (7) Erectile dysfunction: Code(s): N52.9 - Male erectile dysfunction, unspecified Category: Medical Qualifiers: Erectile dysfunction type: unspecified Qualified Code(s): N52.9 - Male erectile dysfunction, unspecified Plan: The patient is currently using tadalafil, which aids in urinary flow but not erectile function. Consideration of discontinuing finasteride to assess improvement in erectile function was discussed. Orders: Orders AMB Hemoglobin A1c 03/04/25 E11.9 - Type 2 diabetes mellitus without complications IRON PROFILE 03/04/25 D50.9 - Iron deficiency anemia, unspecified, I48.0 - Paroxysmal atrial fibrillation Prostate Specific Antigen Scr 03/04/25 N52.9 - Male erectile dysfunction, unspecified, Z12.5 - Encounter for screening for malignant neoplasm of prostate Patient Instructions: Goal: Blood pressure to remain below 140/90, LDL to be optimally below 70 Barriers: Adherence to physical activity and healthy eating habits
[2025-03-04 09:50] VITALS: BP 110/70; PULSE 62; TEMP 36.1; O2SAT 100; BMI 25.1
--- OUTSIDE RECORDS SUMMARY | 2025-03-04 10:38 | XMS_ITS | Clinical Summary ---
Author Organization [facility] Facility Address [address] [place] [id number] Care Team Providers Care Office Systems Technology Instructor Name Role Phone Unavailable Primary Care Provider Unavailabl e Social History Tobacco Use Types Packs/Day Years Used Date Smoking Tobacco: Never Assessed Sex and Gender Information Value Date Recorded Sex Assigned at Not on file Legal Sex Male 5:16 PM EST Gender Identity Not on file Sexual Orientation Not on file Plan of Treatment Health Maintenance Due Date Last Done Comments Colorectal Cancer Screening: Annual FOBT 2001 Colorectal Cancer Screening: Colonoscopy 2001 Colorectal Cancer Screening: Sigmoidoscopy 2001 Pneumococcal Vaccine: 50+ Ye ars (1 of 1 - PCV) 2002 Influenza Vaccine (#1) 2025 Hepatitis B Vaccine Aged Out No longe r eligible based on patient's age to complete this topic Insurance [facility]
== END 2025-03-04 10:43 | disposition home or self-care (01) ==
LOC: HO.HMCH 09:34
PROVIDERS: PCP Physician Assistant; Visit Provider Physician Assistant
DX: Z00.00 Encounter for general adult medical examination without abnormal findings (principal); E11.9 Type 2 diabetes mellitus without complications; I48.0 Paroxysmal atrial fibrillation; I25.118 Atherosclerotic heart disease of native coronary artery with other forms of angina pectoris; Z98.890 Other specified postprocedural states; E78.00 Pure hypercholesterolemia, unspecified; N52.9 Male erectile dysfunction, unspecified

== ENCOUNTER 2025-03-04 09:33 | Outpatient (REF) | payer MEDICARE, SELFPAY ==
[2025-03-04 11:23] LABS: Hematocrit 40.9 % (42.0-52.0); Hemoglobin 13.6 g/dl (14.0-18.0); Mean Corpuscular HGB Conc 33.3 g/dl (31.0-36.0); Mean Corpuscular Hemoglobin 29.2 pg (27.0-33.0); Mean Corpuscular Volume 88.0 fL (80.0-98.0); NRBC Abs Auto 0.000 X10*3/uL (0.0-0.012); NRBC Pct Auto 0.0 /100WBC (0.0-0.2); Platelet Count 229 X10*3/uL (160-400); Red Blood Count 4.65 X10*6/uL (4.60-5.80); White Blood Count 7.2 X10*3/uL (4.8-10.8)
[2025-03-04 12:00] LABS: Alanine Aminotransferase 25 U/L (0-40); Albumin Level 4.8 g/dL (3.5-5.0); Alkaline Phosphatase 105 U/L (39-117); Anion Gap 12 (12-20); Aspartate Amino Transferase 49 U/L (5-37); Blood Urea Nitrogen 16 mg/dL (9-16); Calcium 9.5 mg/dL (8.4-10.2); Carbon Dioxide 27 mmol/L (22-29); Chloride 107 mmol/L (96-108); Cholesterol 122 mg/dL (<200); Estimated Glomerular Filt Rate > 60; HDL Cholesterol 45 mg/dL (>40); Iron 89 mcg/dL (45-160); Percent Iron Saturation 28 % (15-50); Potassium 4.5 mmol/L (3.3-5.1); Sodium 141 mmol/L (135-145); Total Iron Binding Capacity 316 mcg/dL (228-428); Total Protein 7.4 g/dL (6.5-8.0); Triglycerides 77 mg/dL (<150); Unsaturated Iron Binding 227 ug/dL
[2025-03-04 12:41] LABS: Hemoglobin A1C 157.0014 umol/L; Total Hemoglobin (HGBA1C) 3527.6089 umol/L
== END 2025-03-04 09:34 | disposition home or self-care (01) ==
LOC: HO.LAB 09:33
PROVIDERS: PCP Physician Assistant; Visit Provider Physician Assistant
DX: Z00.00 Encounter for general adult medical examination without abnormal findings (principal); Z12.5 Encounter for screening for malignant neoplasm of prostate; I25.118 Atherosclerotic heart disease of native coronary artery with other forms of angina pectoris; E78.00 Pure hypercholesterolemia, unspecified; E11.9 Type 2 diabetes mellitus without complications; D50.9 Iron deficiency anemia, unspecified; I48.0 Paroxysmal atrial fibrillation; N52.9 Male erectile dysfunction, unspecified; Z98.890 Other specified postprocedural states
CPT/HCPCS: 36415; 80053; 80061; 82043; 82570; 83036; 83540; 84153; 85027; 96127; 99397